=== PATIENT | male | born 1935 | race Caucasian/White ===

== ENCOUNTER → 2022-06-25 | Outpatient (CLI) | payer OTHER ==
[~2022-06-25] MED LIST: ACET325 PO; ASPI81EC PO; ATEN50 PO; ATOR40TA; B Complex1 EAC2 PO; CIPR500; HYDCHL25 PO; LOSA50 PO; LOSARTAN PO; METR500; Micro-K10 MEQ; Saw Palmetto450 MG PO; VITAMIN D-32000 UNIT; Zantac PO
== END | disposition home or self-care (01) ==
LOC: LAB 16:10 → LAB SHORT 16:10
DX: R30.9 Painful micturition, unspecified (principal)
CPT/HCPCS: 87077; 87086; 87186

== ENCOUNTER 2023-01-22 06:54 | Day surgery (SDC) | payer OTHER ==
[~2023-01-22] VITALS: Ht 170.2 cm; Wt 77.0 kg
[2023-01-22] MEDS ORDERED: FURO40 (07:11)
[2023-01-22] MEDS ORDERED: FAMO20 (07:11)
--- NOTE | 2023-01-22 07:17 | NUR ---
01/22/23 0717 Jaz Mccarthy CALL LIGHT WITHIN REACH.
== END 2023-01-22 08:53 | disposition home or self-care (01) ==
LOC: ORSCSDS 06:54
PROVIDERS: Student in an Organized Health Care Education/Training Program
PROC: 08DJ3ZZ Extraction of Right Lens, Percutaneous Approach (ICD-10-PCS; principal; 2023-01-22 08:15)
DX: H25.11 Age-related nuclear cataract, right eye (principal); I12.9 Hypertensive chronic kidney disease with stage 1 through stage 4 chronic kidney disease, or unspecified chronic kidney disease; N18.32 Chronic kidney disease, stage 3b; R00.1 Bradycardia, unspecified; I47.1 Supraventricular tachycardia; K21.9 Gastro-esophageal reflux disease without esophagitis; E78.5 Hyperlipidemia, unspecified; N25.81 Secondary hyperparathyroidism of renal origin; K27.9 Peptic ulcer, site unspecified, unspecified as acute or chronic, without hemorrhage or perforation; Z79.82 Long term (current) use of aspirin; Z79.899 Other long term (current) drug therapy
CPT/HCPCS: J2001; J2250; J3010; J7040; V2632

== ENCOUNTER 2023-02-05 06:54 | Day surgery (SDC) | payer OTHER ==
[~2023-02-05] VITALS: Ht 170.2 cm; Wt 75.1 kg
[~2023-02-05 06:54] MED LIST changes: +FAMO20; +FURO40
[2023-02-05] MEDS ORDERED: MELO7.5 PO (07:39)
[2023-02-05] MEDS ORDERED: LOSA50 PO (07:39)
--- NOTE | 2023-02-05 07:44 | NUR ---
02/05/23 0744 Christiano Lilly CALL LIGHT WITHIN REACH. TETRACAINE IN LEFT EYE AT 0741 AND PLEDGETT IN AT 0742
== END 2023-02-05 09:06 | disposition home or self-care (01) ==
LOC: ORSCSDS 06:54
PROVIDERS: Student in an Organized Health Care Education/Training Program
PROC: 08DK3ZZ Extraction of Left Lens, Percutaneous Approach (ICD-10-PCS; principal; 2023-02-05 09:00)
DX: H25.12 Age-related nuclear cataract, left eye (principal); Z96.1 Presence of intraocular lens; I12.9 Hypertensive chronic kidney disease with stage 1 through stage 4 chronic kidney disease, or unspecified chronic kidney disease; N18.32 Chronic kidney disease, stage 3b; I50.9 Heart failure, unspecified; E78.5 Hyperlipidemia, unspecified; K21.9 Gastro-esophageal reflux disease without esophagitis; I73.9 Peripheral vascular disease, unspecified; E21.3 Hyperparathyroidism, unspecified; Z79.82 Long term (current) use of aspirin; Z79.899 Other long term (current) drug therapy
CPT/HCPCS: J2001; J2250; J3010; J7040; V2632

== ENCOUNTER → 2023-04-23 | Outpatient (CLI) | payer OTHER ==
[~2023-04-23] MED LIST changes: +MELO7.5 PO
== END | disposition home or self-care (01) ==
LOC: LAB SHORT 10:30 → LAB 10:30
DX: N39.0 Urinary tract infection, site not specified (principal)
CPT/HCPCS: 87086

== ENCOUNTER → 2024-05-26 | Outpatient (CLI) | payer OTHER | LOC: LAB 16:52 → LAB SHORT 16:52 | DX: N39.0 Urinary tract infection, site not specified (principal) | CPT/HCPCS: 87086 ==